=== PATIENT | female | born 1935 ===

== ENCOUNTER 2021-07-23 08:03 | Inpatient (IN) ==
[2021-07-23 10:05] LABS: Hematocrit 15 % (35-47); Hemoglobin 4.4 g/dL (12.0-16.0); Mean Corpuscular HGB Conc 29 g/dL (31-36); Mean Corpuscular Hemoglobin 23 pg (27-31); Mean Corpuscular Volume 79 fL (80-97); Mean Platelet Volume 7.9 fL (7.4-10.4); Platelet Count 388 10^3/uL (150-450); Red Blood Count 1.91 10^6 /uL (3.70-4.87); Red Cell Distribution Width 24 % (10-15); White Blood Count 4.6 10^3/uL (3.5-10.8)
[2021-07-23 10:16] LABS: Rapid COVID-19 Molecular Undetected (Undetected)
[2021-07-23 10:23] LABS: ALT 11 U/L (7-52); AST 24 U/L (13-39); Albumin 3.5 g/dL (3.2-5.2); Albumin/Globulin Ratio 1.2 (1-3); Alkaline Phosphatase 75 U/L (35-149); Anion Gap 9 mmol/L (2-11); Blood Urea Nitrogen 16 mg/dL (6-24); CO2 Carbon Dioxide 23 mmol/L (22-32); Calcium 8.7 mg/dL (8.6-10.3); Chloride 111 mmol/L (101-111); Glucose 118 mg/dL (70-100); Potassium 3.9 mmol/L (3.5-5.0); Sodium 143 mmol/L (135-145); Total Protein 6.5 g/dL (6.4-8.9); eGFR CKD-EPI 57.6 (>60)
[2021-07-23 10:25] LABS: Troponin I 0.02 ng/mL (<0.03)
[2021-07-23 10:26] LABS: Microcytosis 1+; Polychromasia 1+
[2021-07-23 10:27] LABS: Acanthocytes 1+; Hypochromasia 1+
[2021-07-23 10:28] LABS: ABS Lymphocytes 0.3 10^3/ul (1.0-4.8); ABS Neutrophils 3.9 10^3/ul (1.5-7.7)
[2021-07-23 10:29] LABS: ABS Basophils 0.1 10^3/ul (0-0.2); ABS Eosinophils 0.1 10^3/ul (0-0.6)
[2021-07-23 11:10] LABS: Hematocrit 15 % (35-47); Hemoglobin 4.1 g/dL (12.0-16.0)
[2021-07-23] MEDS ORDERED: Furosemide 40 mg/4 ml IV VIAL IV SLOW PU ONE (11:34)
[2021-07-23] MEDS ORDERED: Iodixanol (CONTRAST) 320 MG/ML 100 ML SDV IV ONE (12:42)
[2021-07-23] MEDS ORDERED: Pantoprazole VIAL 40 MG VIAL IV ONE ×2 (13:32→14:00)
[2021-07-23 17:47] LABS: LDH 262 U/L (140-271)
[2021-07-23 18:09] LABS: Ferritin 9.3 ng/mL (11-307)
[2021-07-23 18:12] LABS: Folate > 20.00 ng/mL (5.90-24.80)
[2021-07-23 18:13] LABS: Vitamin B12 > 1450 pg/mL (180-914)
[2021-07-23 20:47] LABS: Troponin I 0.03 ng/mL (<0.03)
[2021-07-23 23:13] LABS: Hematocrit 22 % (35-47); Hemoglobin 6.7 g/dL (12.0-16.0)
[2021-07-24] MEDS: Pantoprazole VIAL 40 MG VIAL IV SCH ×4 (00:57→19:54)
[2021-07-24] MEDS ORDERED: Pantoprazole VIAL 40 MG VIAL IV SCH (02:00)
[2021-07-24 05:37] LABS: Hematocrit 24 % (35-47); Hemoglobin 7.6 g/dL (12.0-16.0); Mean Corpuscular HGB Conc 32 g/dL (31-36); Mean Corpuscular Hemoglobin 25 pg (27-31); Mean Corpuscular Volume 80 fL (80-97); Mean Platelet Volume 7.9 fL (7.4-10.4); Platelet Count 292 10^3/uL (150-450); Red Blood Count 2.98 10^6 /uL (3.70-4.87); Red Cell Distribution Width 21 % (10-15); White Blood Count 4.5 10^3/uL (3.5-10.8)
[2021-07-24 05:53] LABS: Calcium 8.3 mg/dL (8.6-10.3); Magnesium 1.8 mg/dL (1.9-2.7); Potassium 3.5 mmol/L (3.5-5.0); eGFR CKD-EPI 66.6 (>60)
[2021-07-24 06:14] LABS: Troponin I 0.03 ng/mL (<0.03)
[2021-07-24] MEDS ORDERED: Magnesium Sulfate 2 gm BAG 2 GM/50 ML BAG IVPB ONE (13:34)
[2021-07-24 13:37] LABS: Hematocrit 25 % (35-47); Hemoglobin 7.9 g/dL (12.0-16.0)
[2021-07-24] MEDS ORDERED: fentaNYL 100 mcg/2 ml 50 MCG/ML VIAL ONE (15:22)
[2021-07-24] MEDS ORDERED: Midazolam 10 mg/10 ml VIAL 1 mg/ml 10 ml VIAL (10 mg) ONE (15:22)
[2021-07-24 23:36] LABS: Hematocrit 26 % (35-47); Hemoglobin 7.8 g/dL (12.0-16.0)
[2021-07-25 07:01] LABS: Calcium 8.1 mg/dL (8.6-10.3); Magnesium 2.1 mg/dL (1.9-2.7); Potassium 3.8 mmol/L (3.5-5.0)
[2021-07-25 07:06] LABS: eGFR CKD-EPI 66.6 (>60)
[2021-07-25 07:12] LABS: Hematocrit 25 % (35-47); Hemoglobin 7.6 g/dL (12.0-16.0); Mean Corpuscular HGB Conc 31 g/dL (31-36); Mean Corpuscular Hemoglobin 25 pg (27-31); Mean Corpuscular Volume 82 fL (80-97); Red Blood Count 3.04 10^6 /uL (3.70-4.87); Red Cell Distribution Width 21 % (10-15)
[2021-07-25 07:15] LABS: Mean Platelet Volume 8.1 fL (7.4-10.4); Platelet Count 276 10^3/uL (150-450); White Blood Count 4.9 10^3/uL (3.5-10.8)
[2021-07-25] MEDS: Pantoprazole VIAL 40 MG VIAL IV SCH (08:29)
[2021-07-25] MEDS ORDERED: Iron Sucrose 200 MG in NS 0.9% 100 ml BAG 100 ML IVPB ONE (09:00)
[2021-07-25 10:25] VITALS: BP 134/66
[2021-07-25 14:04] LABS: % Iron Saturation 5 % (14 - 50); Total Iron Binding Capacity 350 mcg/dL (250 - 400)
== END 2021-07-25 15:10 | disposition home or self-care (01) | DRG 378 ==
LOC: ED 08:03 → SUATTDRO 12:06 → EDHOLD 12:06 → MED 17:39
PROVIDERS: ADMIT Internal Medicine; ATTEND Internal Medicine